=== PATIENT | male | born 1955 | race Caucasian/White ===

== ENCOUNTER → 2018-06-01 | Outpatient (CLI) | payer OTHER ==
--- NOTE | 2018-06-01 19:10 | RAD ---
Examination: TESTICULAR/SCROTUM History: LT TESTICLE PAIN OFF AND ON FOR 1MONTH NO KNOWN INJURY,
Comparison/Correlation: None Findings: Scrotal ultrasound exam was performed. Right testicle measures 4 cm x 3.1 cm x 1.9 cm. Left testicle measures 3.19 x 2.4 cm x 2.1 cm. Epididymides are within normal limits for size with the left epididymis being larger. Very small bilateral hydroceles are present greater on the left. No scrotal mass. Normal testicular echotexture is present. Normal flow on color and spectral Doppler imaging is evident. No evidence of testicular torsion. No evidence of hyperemia involving the epididymis on the right or left. Impression: No evidence of testicular torsion. Electronically signed by: Shivam Sheffield MD (06/01/2018 7:06 PM) [id number]
== END | disposition home or self-care (01) ==
LOC: US 17:55
DX: N50.812 Left testicular pain (principal); N43.2 Other hydrocele
CPT/HCPCS: 76870